=== PATIENT | female | born 1975 | race Caucasian/White ===

== ENCOUNTER 2020-10-12 17:35 | Emergency (ER) | payer BC, SELFPAY ==
[2020-10-12 17:36] VITALS: BP 159/94; PULSE 98; RESP 16; TEMP 36.7; O2SAT 97; BMI 39.5
--- NOTE | 2020-10-12 17:48 | ED.DCSUM_ITS ---
History of Present Illness Chief Complaint: Lower Extremity Injury Narrative: Patient is a 45-year-old female who presents with right ankle and foot pain. This morning her dog slipped on ice causing her to fall. She fell with her right foot and ankle underneath her. She complains of worsening right ankle pain throughout the day and is beginning to have pain in the foot as well. It is now become too painful to bear weight. She also complains of some numbness. Suffered an abrasion to the right knee but does not really have much pain at the knee. No head injury no loss of consciousness no chest abdominal or back pain. She denies any medical history or daily medications. She has not tried taking anything today for pain. Past Medical History - Allergies and Home Meds Allergies/Adverse Reactions: Allergies No Known Allergies Allergy (Verified 10/12/20 17:39) Primary Care Physician: Daysi Cary,Out of [NON-STAFF] - Past Medical History: None Review of Systems All systems negative except as indicated General: Denies: Fever Eyes: Denies: Visual changes - bilaterally Cardiovascular: Denies: Chest pain Respiratory: Denies: Dyspnea Gastrointestinal: Denies: Abdominal pain Musculoskeletal: Reports: Extremity Pain Skin: Denies: Rash Neurological: Denies: Headache Hematologic: Denies: Easy bruising Allergy: Denies: Uticaria Physical Exam Vital Signs/Narrative: Vital Signs Temp Pulse Resp BP Pulse Ox 10/12/20 17:36 98.0 F 98 16 159/94 H 97 Inital Vital Signs reviewed: Yes General: Well nourished Head: Normocephalic Eyes: EOMI ENT: Moist mucous membranes Neck: Supple Cardiovascular: Regular rate Respiratory: No distress Extremities: - - Active full range of motion of the right lower extremity, abrasion over the anterior right knee no tenderness at the knee or proximal fibula she does have some nonfocal tenderness of the right ankle/foot no focal bony tenderness, palpable dorsalis pedis pulse, brisk cap refill, sensation normal Skin: Normal color Neurological: Alert Psychological: Normal affect Diagnostic/Tx/Re-eval Impressions Ankle X-Ray 10/12/20 17:50 IMPRESSION: Acute comminuted fracture of the distal tibial spur best noted on lateral projection. Bimalleolar sprain Electronically Signed: Andrew Mark MD at 18:35 EST , Service support , Foot X-Ray 10/12/20 17:50 IMPRESSION: No acute fracture or dislocation of the foot. Other findings as above. Electronically Signed: Andrew Mark MD at 18:37 EST , Service support , 10/12/20 17:50 Ankle min 3 Views [RAD] Stat Foot min 3 Views [RAD] Stat - Medical Decision Making 3 view right foot x-ray and 3 view ankle x-ray obtained. On my interpretation foot x-ray shows no acute fracture. On my interpretation ankle x-ray shows a bony fragment or avulsion at the anterior ankle. Radiology read this is an acute fracture of a tibial spur. Patient was given an Aircast and crutches. She was advised on supportive care including rest ice and elevation. She was given a prescription for naproxen as well as a dose here. She was referred to orthopedics for follow-up but does understand return for new or worsening sy mptoms. ED Disposition - Plan for ED Patient: Disposition: Home or Assisted Living Diagnosis: Ankle fracture Instructions: ED Ankle Fracture Prescriptions: Naproxen [Naprosyn] 500 mg PO BID #20 tab Prescription Printed Referrals: [facility] Doctor,Out of [NON-STAFF] - Fabián Lockhart MD [STAFF PHYSICIAN] -
--- NOTE | 2020-10-12 17:50 | RAD_ITS ---
STUDY: X-RAY - RIGHT FOOT CLINICAL: Female, 45 years old. TWISTED ANKLE/FOOT TODAY. PAIN IS GREATEST ON MEDIAL SIDE OF ANKLE/FOOT TECHNIQUE: 3 view(s) of the foot. COMPARISON: None. FINDINGS: Normal talus,, and tarsal bones. Plantar calcaneal spur and posterior enthesophyte Acutely fractured spur of the distal tibia. Normal visualized subtalar, talonavicular, calcaneocuboid, tarsal and tarsometatarsal articulations. Normal metatarsi. Normal metatarsophalangeal joint of the great toe. Normal tibial and fibular sesamoid bones. Normal interphalangeal joint of the great toe. Normal phalanges of the great toe. Normal second through fifth metatarsophalangeal joints. Normal interphalangeal joints and phalanges of the lesser toes. The soft tissue structures are unremarkable. RAD/Foot min 3 Views IMPRESSION: No acute fracture or dislocation of the foot. Other findings as above. Electronically Signed: Andrew Mark MD at 18:37 EST , Service support ,
--- NOTE | 2020-10-12 17:50 | RAD_ITS ---
STUDY: X-RAY - RIGHT ANKLE REASON FOR EXAM: Female, 45 years old. TWISTED Ankle/foot today. pain is greatest on medial side along medial malleolus and down into medial heal TECHNIQUE: 3 view(s) of the ankle. COMPARISON: None. FINDINGS: Normal visualized distal fibula.. On the lateral view, there appears to be a prominent spur of the distal tibia which demonstrates comminuted fracture with minor separation of fracture fragments Normal medial and lateral malleoli. Normal tibiotalar articulation and ankle mortise. Normal visualized talus and calcaneus. The visualized subtalar, talonavicular, calcaneocuboid and tarsal articulations are normal. Bimalleolar soft tissue swelling is noted. RAD/Ankle min 3 Views IMPRESSION: Acute comminuted fracture of the distal tibial spur best noted on lateral projection. Bimalleolar sprain Electronically Signed: Andrew Mark MD at 18:35 EST , Service support ,
[2020-10-12 19:41] VITALS: BP 167/92; PULSE 79; RESP 16; O2SAT 98
== END 2020-10-12 19:45 | disposition home or self-care (01) ==
PROVIDERS: Emergency Provider Emergency Medicine
DX: S82.391A Other fracture of lower end of right tibia, initial encounter for closed fracture (principal); W00.0XXA Fall on same level due to ice and snow, initial encounter; Y93.K1 Activity, walking an animal; Y92.89 Other specified places as the place of occurrence of the external cause; Y99.8 Other external cause status
CPT/HCPCS: 73610; 73630; 99284